=== PATIENT | female | born 1960 | race Caucasian/White ===

== ENCOUNTER → 2020-06-16 | Outpatient (CLI) | payer MEDICARE ==
[~2020-06-16] MED LIST: ADVAIR 250-501 EACH INH; COMBIVENT0.074 GM/I INH; LEVAQUIN750 MG PO; LISINOPRIL10 MG PO; MEDROL DOSEPAK 24 MG PO; ORGANIDIN NR 2200 MG PO; PAXIL20 MG PO; PRAVACHOL40 MG PO; TUDORZA PRESS400 MCG INH; ZANAFLEX4 MG PO
== END ==
LOC: MAMO 08:24
DX: Z12.31 Encounter for screening mammogram for malignant neoplasm of breast (principal)
CPT/HCPCS: 77063; 77067

== ENCOUNTER → 2020-06-22 | Outpatient (CLI) | payer MEDICARE | LOC: HEART 5 14:46 | DX: R00.1 Bradycardia, unspecified (principal) ==

== ENCOUNTER → 2020-07-12 | Outpatient (CLI) | payer MEDICARE | LOC: KOH-I 14:15 | DX: F17.210 Nicotine dependence, cigarettes, uncomplicated (principal); R91.1 Solitary pulmonary nodule | CPT/HCPCS: 71271 ==

== ENCOUNTER → 2020-07-13 | Outpatient (CLI) | payer MEDICARE | LOC: HEART 5 07-11 10:00 | DX: R00.1 Bradycardia, unspecified (principal) | CPT/HCPCS: 93306 ==

== ENCOUNTER → 2020-11-04 | Outpatient (CLI) | payer MEDICARE | LOC: KOH-I 13:39 | DX: R42 Dizziness and giddiness (principal); G31.9 Degenerative disease of nervous system, unspecified | CPT/HCPCS: 70450 ==

== ENCOUNTER → 2020-12-08 | Outpatient (CLI) | payer MEDICARE | LOC: EXRD 13:00 | DX: N18.30 Chronic kidney disease, stage 3 unspecified (principal); N28.1 Cyst of kidney, acquired | CPT/HCPCS: 76775 ==

== ENCOUNTER → 2020-12-21 | Outpatient (CLI) | payer MEDICARE | LOC: EXRD 12-12 11:30 | DX: Z13.820 Encounter for screening for osteoporosis (principal); Z78.0 Asymptomatic menopausal state | CPT/HCPCS: 77080 ==

== ENCOUNTER → 2021-06-21 | Outpatient (CLI) | payer MEDICARE | LOC: EXRD 10:50 | DX: M54.50 Low back pain, unspecified (principal); M41.9 Scoliosis, unspecified; M51.37 Other intervertebral disc degeneration, lumbosacral region | CPT/HCPCS: 72070; 72110 ==

== ENCOUNTER → 2021-08-08 | Outpatient (CLI) | payer MEDICARE | LOC: KOH-I 07-27 16:30 | DX: Z87.891 Personal history of nicotine dependence (principal) | CPT/HCPCS: 71271 ==